=== PATIENT | female | born 1955 | race Caucasian/White ===

== ENCOUNTER 2017-02-18 22:07 | Emergency (ER) | payer OTHER ==
[2017-02-18] MEDS ORDERED: 0.9 % SODIUM CHLORIDE 1000ML 1,000 ML IV SCH (22:15)
--- NOTE | 2017-02-18 22:17 | Emergency Department Record ---
History of Present Illness - General Chief Complaint: Syncope Stated Complaint: PASS OUT Time Seen by Provider: 02/18/17 22:11 Source: Patient, EMS Mode of Arrival: Stretcher Limitations: No limitations - History of Present Illness Initial Comments: 62 yo female presents to ED for evaluation of "passing out" several times tonight per her , patient does not remember the event. Patient denies chest pain or difficulty breathing, denies abdominal pain or recent illness. Patient denies headache or neck stiffness, denies recent injury. Accu check on scene was 144. Patient reports a history of HTN and elevated cholesterol. MD Complaint: Collapsed Onset/Timin -: Hour(s) Prodromal Symptoms: None Witnessed: Yes - by bystander Injuries Sustained Associated with Event: None Current Symptoms: None Context: Alcohol use Treatments Prior to Arrival: None - Jd Coma Scale Eye Response: (4) Open spontaneously Motor Response: (6) Obeys commands Verbal Response: (5) Oriented Jd Total: 15 - Related Data Allergies Allergy/AdvReac Type Severity Reaction Status Date / Time No Known Drug Allergies Allergy Verified 02/19/17 00:03 Review of Systems Constitutional: Denies: Chills, Fever, Malaise, Night sweats Eyes: Denies: Eye discharge, Eye pain ENT: Denies: Congestion, Ear pain, Epistaxis Respiratory: Denies: Cough, Dyspnea Cardiovascular: Reports: Syncope. Denies: Chest pain, Dyspnea on exertion Endocrine: Denies: Fatigue, Heat or cold intolerance Gastrointestinal: Denies: Abdominal pain, Nausea, Vomiting Genitourinary: Denies: Incontinence, Retention Musculoskeletal: Denies: Arthralgia, Back pain, Gout, Joint swelling Skin: Denies: Bruising, Change in color Neurological: Denies: Abnormal gait, Confusion, Headache, Seizure Psychiatric: Denies: Anxiety Hematological/Lymphatic: Denies: Anemia, Blood Clots Past Medical History - SOCIAL HISTORY Smoking Status: Current every day smoker Alcohol Use Comment: 1 or 2 drinks nightly - RESPIRATORY Hx Respiratory Disorders: No - CARDIOVASCULAR Hx Cardio Disorders: Yes Comment:: was hypertensive now hypotensive - NEURO Hx Neuro Disorders: No - GI Hx GI Disorders: Yes Hx Reflux: Yes - Hx Genitourinary Disorders: No - ENDOCRINE Hx Endocrine Disorders: Yes Hx Thyroid Disease: Yes - MUSCULOSKELETAL Hx Musculoskeletal Disorders: Yes Hx Osteoporosis: Yes - PSYCH Hx Psych Problems: Yes Hx Anxiety: Yes Hx Behavior Problems: Yes - HEMATOLOGY/ONCOLOGY Hx Hematology/Oncology Disorders: No Family Medical History Hx Cancer: Father, Mother Hx Heart Disease: Father Physical Exam - General General Appearance: Alert, Oriented x3, Cooperative, No acute distress, Other ( patient is clinically intoxicated on examination, denies symptoms at this time.) Limitations: No limitations - Head Head exam: Atraumatic, Normocephalic, Normal inspection Head exam detail: negative: Abrasion, Contusion, Singh's sign, General tenderness, Hematoma, Laceration - Eye Eye exam: Normal appearance. negative: Conjunctival injection, Periorbital swelling, Periorbital tenderness, Scleral icterus - ENT Ear exam: negative: Auricular hematoma, Auricular trauma Nasal Exam: negative: Active bleeding, Discharge, Dried blood, Foreign body Mouth exam: negative: Drooling, Laceration, Tongue elevation - Neck Neck exam: Normal inspection. negative: Meningismus, Tenderness - Respiratory Respiratory exam: Normal lung sounds bilaterally. negative: Rales, Respiratory distress, Rhonchi, Stridor - Cardiovascular Cardiovascular Exam: Regular rate, Normal rhythm, Normal heart sounds - GI/Abdominal GI/Abdominal exam: Soft. negative: Rebound, Rigid, Tenderness - Rectal Rectal exam: Deferred - exam: Deferred - Extremities Extremities exam: Normal inspection. negative: Calf tenderness, Pedal edema, Tenderness - Back Back exam: Denies: CVA tenderness (R), CVA tenderness (L) - Neurological Neurological exam: Alert, Normal gait, Oriented X3 - Psychiatric Psychiatric exam: Normal affect, Normal mood - Skin Skin exam: Normal color. negative: Abrasion Type of lesion: negative: abrasion Course - Reevaluation(s) Reevaluation #1: 02/18/17 22:36 EKG: NSR 78 Normal axis, normal intervals Non-specific ST-T wave changes are present Reevaluation #2: 02/18/17 22:50 Labs reviewed, WBC 13.8, Alcohol 0.169, labs are otherwise grossly unremarkable for an acute process. Reevaluation #3: 02/18/17 23:04 Patient and SO were updated on all results, patient reports that she is feeling at her baseline. Patient has been on the monitor for the duration of her ED visit without any significant arrhythmias. Reevaluation #4: 02/19/17 00:03 No arrhythmias noted on additional cardiac monitoring, patient appears stable for discharge with her at this time. Medical Decision Making - Lab Data Result diagrams: 02/18/17 22:15 02/18/17 22:15 Disposition Disposition: Discharge Clinical Impression: Syncope and collapse Alcohol intoxication Qualifiers: Complication of substance-induced condition: uncomplicated Qualified Code(s): F10.920 - Alcohol use, unspecified with intoxication, uncomplicated Disposition: Home, Self-Care Condition: (2) Stable Instructions: Alcohol Intoxication (ED) Additional Instructions: Return to ED if your symptoms worsen or if you have any concerns. Alcohol in moderation. Follow-up with your family doctor in 3-5 days as directed. Forms: Patient Portal Access Time of Disposition: 00:04 Quality - Quality Measures Quality Measures: N/A - Blood Pressure Screening Does Patient Have Any of the Following: No Blood Pressure Classification: Normal BP Reading Systolic Measurement: 109 Diastolic Measurement: 75 Screening for High Blood Pressure: < Normal BP, F/U Not Required > [G8783]
[2017-02-18 22:18] LABS: HEMATOCRIT 46.7 % (35.0-47.0); HEMOGLOBIN 16.2 gm/dl (11.6-16.0); MEAN CELL VOLUME 95.9 fl (81-97); MEAN CORPUSCULAR HGB CONC 34.7 g/dl (32-36); MEAN PLATELET VOLUME 8.7 fl (7.4-10.4); PLATELET COUNT 373 K/uL (130-400); RED BLOOD COUNT 4.87 M/uL (3.80-5.40); RED CELL DISTRIBUTION WIDTH 13.1 % (11.5-14.5); WHITE BLOOD COUNT W/O DIFF 13.8 K/uL (4.2-12.2)
[2017-02-18 22:19] LABS: MEAN CORPUSCULAR HEMOGLOBIN 33.2 pg (27-33)
[2017-02-18 22:31] LABS: BLOOD UREA NITROGEN 12 mg/dL (8-23); CREATININE 0.8 mg/dL (0.5-0.9); EST GLOMERULAR FILTRATION RATE > 60 mL/min
[2017-02-18 22:33] LABS: ALCOHOL 0.169 g/dL (0-0.010)
[2017-02-18 22:34] LABS: GLUCOSE,RANDOM 129 mg/dL (74-109)
[2017-02-18 22:36] LABS: ALT/SGPT 11 U/L (<33); AST/SGOT 29 U/L (10.0-35.0)
[2017-02-18 22:37] LABS: ALB/GLOB RATIO 1.5 (1.1-1.8); ALBUMIN 4.2 g/dL (4.0-5.0); ALKALINE PHOSPHATASE 32 U/L (35-104)
== END 2017-02-19 00:16 | disposition home or self-care (01) ==
LOC: ER 22:07
DX: R55 Syncope and collapse (principal); F10.920 Alcohol use, unspecified with intoxication, uncomplicated; I10 Essential (primary) hypertension; F17.210 Nicotine dependence, cigarettes, uncomplicated
CPT/HCPCS: 99284 ×2; 80053; 84484; 85027; G0480; 80320